=== PATIENT | male | born 1970 | race Caucasian/White ===

== ENCOUNTER 2020-08-09 15:11 | Emergency (ER) | payer BC, OTHER ==
[2020-08-09 15:20] VITALS: TEMP 98; BMI 27.5
[2020-08-09] MEDS ORDERED: ASPIRIN 81 MG CHEWABLE TABLETS PO ONE (15:33)
[2020-08-09 16:00] LABS: INR 1.08 (0.82-1.09)
[2020-08-09 16:01] LABS: BASO % 0.2 % (0-2.0); EOS % 0.2 % (0-4.5); HEMATOCRIT 45.9 % (35.4-49); HEMOGLOBIN 15.1 GM/dl (11.7-16.9); LYMPH % 17.9 % (8-40); MCH 31.2 pg (25.7-33.7); MCHC 32.8 g/dl (32.0-35.9); MEAN CELL VOLUME 94.9 fl (80-96); MEAN PLT VOLUME 8.9 fl (7.5-11.1); MONO % 5.8 % (3.8-10.2); NEUT % 75.9 % (42.8-82.8); PLATELET COUNT 238 K/MM3 (134-434); RBC 4.83 M/mm3 (4.00-5.60); RDW 11.9 % (11.9-15.9); WHITE BLOOD COUNT 8.1 K/mm3 (4.0-10.8)
[2020-08-09 16:05] LABS: ALBUMIN 4.6 g/dl (3.4-5.0); CALCIUM 8.8 mg/dl (8.5-10); CREATININE 0.8 mg/dl (0.55-1.3); TOT PROT 6.9 g/dl (6.4-8.2)
[2020-08-09] MEDS ORDERED: HEPARIN NA (PORCINE) 5,000 UNITS/ML 1ML VIAL IVPUSH PRN (17:47)
[2020-08-09] MEDS ORDERED: HEPARIN INFUSION - 25,000 UNITS/500 ML INFUS.BAG IVPB ONE (17:50)
[2020-08-09] MEDS ORDERED: HEPARIN NA (PORCINE) 5,000 UNITS/ML 1ML VIAL ONE (17:50)
[2020-08-09] MEDS ORDERED: HEPARIN INFUSION - 25,000 UNITS/500 ML INFUS.BAG IVPB SCH (18:00)
[2020-08-09] MEDS ORDERED: ATORVASTATIN CA 80 MG TABLET (FP) PO ONE (19:50)
[2020-08-09] MEDS ORDERED: ATORVASTATIN CA 80 MG TABLET (FP) ONE (20:04)
[2020-08-09 21:34] VITALS: BP 129/88; PULSE 85
== END 2020-08-09 23:30 | disposition short-term general hospital (02) ==
LOC: FER 15:11
DX: I24.9 Acute ischemic heart disease, unspecified (principal)
CPT/HCPCS: 36415; 71045-TC-FY; 80053; 82550; 82553; 84484; 85025; 85610; 86140; 93005; 99285-25; J1644